=== PATIENT | female | born 1995 | race Caucasian/White ===

== ENCOUNTER 2017-03-17 23:22 | Emergency (ER) | payer BC, OTHER ==
[~2017-03-17] VITALS: Ht 152.4 cm; Wt 40.0 kg
[~2017-03-17 23:22] MED LIST: COLL30OI3 TOP
[2017-03-17 23:25] VITALS: BP 101/73; PULSE 84; RESP 16; TEMP 97.5; O2SAT 99
--- NOTE | 2017-03-18 01:10 | PD ---
HPI Chief Complaint: Edema Time Seen by Provider: 00:18 Travel History International Travel<30 days: No Contact w/Intl Traveler<30days: No History of Present Illness HPI The patient is a 21 year old female who presents to the [facility] emergency department with a history of lower extremity edema that began in the right lower extremity approximately 2-3 weeks ago. She reports that a few days after developing the edema she then developed a cellulitis. She reports that she has been under the care of a natural path for the last few months. She did see the natural pathic doctor and was treated with natural remedies. She reports that the cellulitis in the right leg resolved. Then approximately on Saturday to Saturday this past week she then developed swelling of the left lower extremity. Her doctor again thought that it may be related to lymphedema as the doctor thought that she was excreting toxins related to the treatment that he was recommending. 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 The patient became concerned when she developed redness of the leg that was worse than in the right leg. She reports that she now has increased redness since Saturday, increased swelling since Saturday, and weeping of yellow drainage.cReview of systems, the patient denies any known recent fevers, cough or congestion, shortness of breath, new or worsening abdominal pain, urinary symptoms, or neurologic symptoms. The patient denies having any vomiting or new diarrhea. She reports that she has a history of constipation that alternates with diarrhea been present for years. She reports that she last moved her bowels yesterday evening. She denies having any blood in her stool or black or tarry stools.LMP: At approximately 18-19 years of age. [facility] Past Medical History Narrative Medical The patient's past medical history is significant for reported intestinal permeability, history of parasitic infections in her intestines, malnutrition and weight loss. ?: Not LMP: "LONG TIME AGO" Past Surgical History Narrative Surgical The patient's past surgical history is reportedly none. Social History Alcohol Use: No Tobacco Use: No Substance Use: No Allergies-Medications (Allergen,Severity, Reaction): Coded Allergies: No Known Allergies (Unverified , 03/17/17) Reported Meds & Prescriptions Reported Meds & Active Scripts Active Bactrim DS (Sulfamethoxazole-Trimethoprim) 800-160 Mg Tab 1 Tab PO BID Keflex (Cephalexin) 500 Mg Capsule 500 Mg PO Q6H Reported Santyl (Collagenase) 15 Gm Oint 1 Applic TOP DAILY APPLY TO: Review of Systems Except as stated in HPI: all other systems reviewed are Neg General / Constitutional: No: Fever Eyes: No: Visual changes HENT: No: Headaches Cardiovascular: Positive: Edema, No: Chest Pain or Discomfort Respiratory: No: Shortness of Breath Gastrointestinal: No: Abdominal Pain Genitourinary: No: Urgency, Frequency, Dysuria Musculoskeletal: Positive: Edema, Pain Skin: Positive Rash Neurologic: No: Weakness, Focal Abnormalities, Change in Mentation, Slurred Speech, Sensory Disturbance Psychiatric: No: Depression Endocrine: No: Polydipsia Hematologic/Lymphatic: No: Easy Bruising Physical Exam Narrative General: The patient is a well-developed, cachectic appearing female in no acute distress. Head and Neck exam: Head is normocephalic atraumatic. Eyes: EOMI, pupils are equal round and reactive to light. Nose: Midline septum with pink mucous membranes Mouth: Dentition unremarkable. Moist mucus membranes. Posterior oropharynx is not erythematous. No tonsillar hypertrophy. Uvula midline. Airway patent. Neck: No palpable lymphadenopathy. No nuchal rigidity. No thyromegaly. Cardiovascular: Regular rate and rhythm without murmurs, gallops, or rubs. Lungs: Clear to auscultation bilaterally. No wheezes, rhonchi, or rales. Abdomen: Soft, distention, however no tenderness on palpation of all 4 quadrants of the abdomen. No guarding, rebound, or rigidity. Normal bowel sounds are audible. No tenderness on palpation of McBurney's point. Negative Guzman's sign. Extremities: No clubbing or cyanosis. The patient has 1+ pitting edema of the left lower extremity, trace to 1+ of the right lower extremity. Erythema that is generalized and noted just below the knee down to the ankle of the left leg. 2 + pulses in all 4 extremities. She has a clear yellow leakage from the left lower extremity around the ankle. The patient has abrasions to bilateral anterior knees which she reports is related to falling. The patient denies having calf tenderness on palpation. The patient has shotty bilateral inguinal lymphadenopathy. Back: No spinous process tenderness to palpation. No costovertebral angle tenderness to palpation. Neurologic Exam: Grossly nonfocal. She is awake and alert. She is oriented to person, place, time, and situation. Skin Exam: The patient's skin is warm. She is not diaphoretic. Data Data Last Documented VS Vital Signs Date Time Temp Pulse Resp B/P (MAP) Pulse Ox O2 Delivery O2 Flow Rate FiO2 03/17/17 23:25 97.5 84 16 101/73 (82) 99 Room Air Orders Orders Complete Blood Count With Diff (03/18/17:19) Comprehensive Metabolic Panel (03/18/17:19) B-Type Natriuretic Peptide (03/18/17:19) C-Reactive Protein (Crp) (03/18/17:19) Lipase (03/18/17:) Urinalysis - C+S If Indicated (03/18/17:19) Westergren Sedimentation Rate (03/18/17:19) Magnesium (Mg) (03/18/17:19) Iv Access Insert/Monitor (03/18/17:) Ecg Monitoring (03/18/17:19) Oximetry (03/18/17:19) Us Leg Venous Doppler Bilat (03/18/17 00:26) Thyroid Stimulating Hormone (03/18/17 00:44) Blood Culture (03/18/17 00:44) Lactic Acid Sepsis Protocol (03/18/17 00:44) Labs Laboratory Tests Test 03/18/17 02:15 White Blood Count 4.6 TH/MM3 Red Blood Count 3.57 MIL/MM3 Hemoglobin 12.1 GM/DL Hematocrit 36.1 % Mean Corpuscular Volume 101.0 FL Mean Corpuscular Hemoglobin 33.8 PG Mean Corpuscular Hemoglobin Concent 33.5 % Red Cell Distribution Width 12.2 % Platelet Count 228 TH/MM3 Mean Platelet Volume 7.3 FL Neutrophils (%) (Auto) 59.8 % Lymphocytes (%) (Auto) 31.2 % Monocytes (%) (Auto) 7.5 % Eosinophils (%) (Auto) 1.0 % Basophils (%) (Auto) 0.5 % Neutrophils # (Auto) 2.8 TH/MM3 Lymphocytes # (Auto) 1.4 TH/MM3 Monocytes # (Auto) 0.3 TH/MM3 Eosinophils # (Auto) 0.0 TH/MM3 Basophils # (Auto) 0.0 TH/MM3 CBC Comment DIFF FINAL Differential Comment Erythrocyte Sedimentation Rate 59 mm/hr Urine Color YELLOW Urine Turbidity CLEAR Urine pH 8.0 Urine Specific Rosalia 1.006 Urine Protein NEG mg/dL Urine Glucose (UA) NEG mg/dL Urine Ketones NEG mg/dL Urine Occult Blood NEG Urine Nitrite NEG Urine Bilirubin NEG Urine Urobilinogen LESS THAN 2.0 MG/DL Urine Leukocyte Esterase NEG Urine WBC 2 /hpf Microscopic Urinalysis Comment CULT NOT INDICATED Blood Urea Nitrogen 19 MG/DL Creatinine 0.39 MG/DL Random Glucose 65 MG/DL Total Protein 7.8 GM/DL Albumin 4.2 GM/DL Calcium Level 9.0 MG/DL Magnesium Level 2.5 MG/DL Alkaline Phosphatase 106 U/L Aspartate Amino Transf (AST/SGOT) 41 U/L Alanine Aminotransferase (ALT/SGPT) 72 U/L Total Bilirubin 0.3 MG/DL Sodium Level 137 MEQ/L Potassium Level 4.1 MEQ/L Chloride Level 99 MEQ/L Carbon Dioxide Level 35.1 MEQ/L Anion Gap 3 MEQ/L Estimat Glomerular Filtration Rate 204 ML/MIN Lactic Acid Level 1.1 mmol/L C-Reactive Protein 6.27 MG/DL B-Type Natriuretic Peptide 42 PG/ML Lipase 421 U/L Thyroid Stimulating Hormone 3rd Gen 1.670 uIU/ML MDM Medical Decision Making Medical Screen Exam Complete: Yes Emergency Medical Condition: Yes Medical Record Reviewed: Yes Differential Diagnosis DVT, versus hypoalbuminemia, versus hypothyroid disorder, versus cellulitis, versus lymphedema Narrative Course During the course of the patients emergency department visit, the patients history, examination, and differential diagnosis were reviewed with the patient. The patient had IV access obtained and blood work sent for analysis. The patient was placed on a quality assurance monitor with oximetry and blood pressure monitoring. An ultrasound of bilateral lower extremities was ordered. The patient's left leg examination is consistent with cellulitis. I explained that the patient would require admission for evaluation and treatment of cellulitis involving the left lower extremity. The patient reports that she will not be admitted. The patient refused IV fluids and IV antibiotic. The patient also refused oral antibiotic. The patients laboratory studies were reviewed and remarkable for a white count of 4.6, hemoglobin 12.1, platelets 228 with a normal differential, sedimentation rate is elevated at 59, CMP is remarkable for CO2 of 35.1, anion gap 3, BUN 19, creatinine 0.39, glucose 65 which will be repeated by Accu-Chek, AST 41, ALT 72, C-reactive protein 6.27, BNP is 42, lipase 421, TSH 1.67, lactic acid 1.1, urinalysis is within normal limits. The patient's blood sugar was noted to be 87. Radiology studies were reviewed and remarkable for an ultrasound that showed no evidence of DVT bilaterally. I Explained to the patient that she could have a bacterial infection in her blood related to a cellulitis of her leg. I also explained that the patient could have a life-threatening bacterial infection versus a limb threatening infection from cellulitis of the left lower extremity. In spite of this, the patient reports that she will not be admitted to the hospital. AMA: The risks of leaving against medical advice without further evaluation treatment were discussed with the patient. These risks include cardiac dysfunction, cardiac dysrhythmia, possible heart attack, possible stroke or . The patient indicated understanding of these risks and appeared to have the capacity to make this decision. Diagnosis Primary Impression: Cellulitis of left lower extremity Additional Impressions: Bilateral lower extremity edema Malnutrition Qualified Codes: E46 - Unspecified protein-calorie malnutrition Admitting Information Admitting Physician Requests: Admit Referrals: Primary Care Physician 1 day Patient Instructions: Cellulitis (ED), General Instructions, Leg Edema (ED) Med/Other Pt SpecificInfo: Prescription(s) given Scripts Sulfamethoxazole-Trimethoprim (Bactrim DS) 800-160 Mg Tab 1 TAB PO BID for Infection, #20 TAB 0 Refills Prov: Rossy Martinez MD 03/18/17 Cephalexin (Keflex) 500 Mg Capsule 500 MG PO Q6H for Infection, #40 CAP 0 Refills Prov: Rossy Martinez MD 03/18/17 Disposition: 07 AGAINST MEDICAL ADVICE Condition: Rossy Adkins MD Mar 18, 2017 01:10
--- NOTE | 2017-03-18 02:03 | RADRPT ---
EXAM DATE/TIME: 03/18/2017 01:19 [place] COMPARISON: No previous studies available for comparison. INDICATIONS : Bilateral leg swelling. MEDICAL HISTORY : None. SURGICAL HISTORY : None. ENCOUNTER: Initial ACUITY: 1 week PAIN SCORE: 7/10 LOCATION: Bilateral legs. TECHNIQUE: Venous ultrasound of the left and right leg was performed from the inguinal ligament to the proximal calf. Real-time, color Doppler and spectral tracing, compression and augmentation techniques were us ed. FINDINGS: RIGHT LEG: There is normal compressibility of the deep venous system from the inguinal region to the proximal ca lf. No echogenic clot is seen in the lumen of the common femoral, femoral, popliteal, and posterior tibial veins. There is a normal response of the venous system to proximal and distal augmentation an d respiration. LEFT LEG: There is normal compressibility of the deep venous system from the inguinal region to the proximal ca lf. No echogenic clot is seen in the lumen of the common femoral, femoral, popliteal, and posterior tibial veins. There is a normal response of the venous system to proximal and distal augmentation an d respiration. CONCLUSION: No venous thrombosis of either lower extremity. Natanael Patel MD on March 18, 2017 at 2:01 Board Certified Radiologist. This report was verified electronically.
[2017-03-18 02:36] LABS: BLOOD, URINE NEG (NEG); COMMENT (UR) CULT NOT INDICATED; CULTURE IF INDICATED CULT NOT INDICATED; GLUCOSE,URINE NEG (NEG); KETONE, URINE NEG (NEG); NITRITE,URINE NEG (NEG); URINE COLOR YELLOW (YELLW/STRAW)
[2017-03-18 02:38] LABS: AUTOMATED NEUTROPHIL # 2.8 TH/MM3 (1.8-7.7); BASOPHIL % 0.5 % (0.0-2.0); HEMATOCRIT 36.1 % (35.0-46.0); HEMO FLAGS DIFF FINAL; LYMPH % 31.2 % (9.0-44.0); LYMPHOCYTE # 1.4 TH/MM3 (1.0-4.8); MEAN CORPUSCULAR HEMOGLOBIN 33.8 PG (27.0-34.0); MEAN CORPUSCULAR HGB CONC 33.5 % (32.0-36.0); MONO % 7.5 % (0.0-8.0); NEUT % 59.8 % (16.0-70.0); PLATELET COUNT 228 TH/MM3 (150-450); RED BLOOD COUNT 3.57 MIL/MM3 (4.00-5.30); RED CELL DISTRIBUTION WIDTH 12.2 % (11.6-17.2); WHITE BLOOD COUNT 4.6 TH/MM3 (4.0-11.0)
[2017-03-18 02:51] LABS: ALT (GPT) 72 U/L (10-53); ANION GAP 3 MEQ/L (5-15); AST (GOT) 41 U/L (15-37); BICARBONATE 35.1 MEQ/L (21.0-32.0); BLOOD UREA NITROGEN 19 MG/DL (7-18); CHLORIDE 99 MEQ/L (98-107); GLOMERULAR FILTRATION RATE 204 ML/MIN (>89); MAGNESIUM 2.5 MG/DL (1.5-2.5); POTASSIUM 4.1 MEQ/L (3.5-5.1); SODIUM (NA) 137 MEQ/L (136-145)
[2017-03-18 02:54] LABS: ALKALINE PHOSPHATASE 106 U/L (45-117); TOTAL BILIRUBIN ADULT 0.3 MG/DL (0.2-1.0)
[2017-03-18] MEDS ORDERED: CEPH-460 PO (03:49)
[2017-03-18] MEDS ORDERED: BACT800T5 PO (03:49)
== END 2017-03-18 04:33 | disposition left against medical advice (07) ==
LOC: NEPE 23:22
DX: L03.116 Cellulitis of left lower limb (principal); R60.0 Localized edema; E46 Unspecified protein-calorie malnutrition; K59.00 Constipation, unspecified; R19.7 Diarrhea, unspecified; Z53.21 Procedure and treatment not carried out due to patient leaving prior to being seen by health care provider
CPT/HCPCS: 80053; 81001; 83605; 83690; 83735; 83880; 84443; 85025; 85652; 86140; 87040; 93970

== ENCOUNTER 2017-03-20 02:14 | Inpatient (IN) | payer BC ==
[~2017-03-20] VITALS: Ht 152.4 cm; Wt 40.0 kg
[~2017-03-20 02:14] MED LIST changes: +BACT800T5 PO; +CEPH-460 PO
[2017-03-20 02:18] VITALS: BP 101/67; PULSE 80; RESP 16; TEMP 98.4; O2SAT 100
[2017-03-20] MEDS ORDERED: PIPERACIL-TAZO 3.375 GM PREMIX 50 ML IV ONE (03:00)
--- NOTE | 2017-03-20 03:17 | PD ---
HPI Chief Complaint: Edema Time Seen by Provider: 02:39 Travel History International Travel<30 days: No Contact w/Intl Traveler<30days: No Traveled to known affect area: No History of Present Illness HPI The patient is a 21 year old female who presents to the [facility] emergency department with a history of being diagnosed with cellulitis of the right lower extremity associated with bilateral lower extremity lymphedema during her emergency department visit on March 17. The patient elected to leave AGAINST MEDICAL ADVICE at that time, as she did not want to be admitted to the hospital. The patient was provided a prescription for Bactrim and Keflex. She reports that she did start taking the medication on Saturday evening. She reports that over the last 24 hours the right leg redness and swelling has worsened. She denies having any worsening pain. She reports that she has had some blisters develop along the dorsum of the right foot. On review of systems, she denies having any fevers or chills, cough, congestion, neck pain, chest pain, shortness of breath, abdominal pain, vomiting, diarrhea, urinary symptoms, or neurologic symptoms. [facility] Past Medical History Narrative Medical The patient's past medical history is reportedly significant for intestinal permeability, history of parasitic infections in her intestines with associated malnutrition and weight loss. She is managed by a naturopathic doctor. Diminished Hearing: No Integumentary: Yes (cellulitis) Tetanus Vaccination: Unknown Influenza Vaccination: No ?: Not LMP: no menstral cycle for yrs Past Surgical History Narrative Surgical The patient's past surgical history is significant for tonsil and adenoidectomy Oral Surgery: Yes Tonsillectomy: Yes (T&A) Social History Alcohol Use: No Tobacco Use: No Substance Use: No Allergies-Medications (Allergen,Severity, Reaction): Coded Allergies: No Known Allergies (Unverified , 03/17/17) Reported Meds & Prescriptions Reported Meds & Active Scripts Active Bactrim DS (Sulfamethoxazole-Trimethoprim) 800-160 Mg Tab 1 Tab PO BID Keflex (Cephalexin) 500 Mg Capsule 500 Mg PO Q6H Review of Systems Except as stated in HPI: all other systems reviewed are Neg General / Constitutional: No: Fever Eyes: No: Visual changes HENT: No: Headaches Cardiovascular: Positive: Edema, No: Chest Pain or Discomfort Respiratory: No: Shortness of Breath Gastrointestinal: No: Nausea, Vomiting, Diarrhea, Abdominal Pain Genitourinary: No: Dysuria Musculoskeletal: Positive: Edema, No: Pain Skin: No Rash Neurologic: No: Weakness, Focal Abnormalities, Change in Mentation, Slurred Speech, Sensory Disturbance Psychiatric: No: Depression Endocrine: No: Polydipsia Hematologic/Lymphatic: No: Easy Bruising Physical Exam Narrative General: The patient is a well-developed well-nourished female in no acute distress. Head and Neck exam: Head is normocephalic atraumatic. Eyes: EOMI, pupils are equal round and reactive to light. Nose: Midline septum with pink mucous membranes Mouth: Dentition unremarkable. Moist mucus membranes. Posterior oropharynx is not erythematous. No tonsillar hypertrophy. Uvula midline. Airway patent. Neck: No palpable lymphadenopathy. No nuchal rigidity. No thyromegaly. Cardiovascular: Regular rate and rhythm without murmurs, gallops, or rubs. No pulse deficit to the extremities. Lungs: Clear to auscultation bilaterally. No wheezes, rhonchi, or rales. Abdomen: Abdomen is slightly distended, firm to palpation, however the patient denies any tenderness on palpation of all 4 quadrants of the abdomen. No guarding, rebound, or rigidity. Normal bowel sounds are audible. No tenderness on palpation of McBurney's point. Negative Guzman's sign. Extremities: No clubbing or cyanosis. The patient has 2+ pitting edema of the left lower extremity, 1+ on the right. The patient has erythema from just past the knee down to the foot. The patient has vesicle formation along the dorsum of the left foot. 2+ pulses in all 4 extremities. Back: No spinous process tenderness to palpation. No costovertebral angle tenderness to palpation. Neurologic Exam: Grossly nonfocal. Skin Exam: No other rashes noted. Skin is warm and dry. Data Data Last Documented VS Vital Signs Date Time Temp Pulse Resp B/P (MAP) Pulse Ox O2 Delivery O2 Flow Rate FiO2 03/20/17 03:00 20 03/20/17 02:18 98.4 80 101/67 (78) 100 Orders Orders Complete Blood Count With Diff (03/20/17 02:59) Comprehensive Metabolic Panel (03/20/17 02:59) Blood Culture (03/20/17 02:59) C-Reactive Protein (Crp) (03/20/17 02:59) Lipase (03/20/17 02:59) Magnesium (Mg) (03/20/17 02:59) Ed Urine Pregnancytest Poc (03/20/17 02:59) Lactic Acid Sepsis Protocol (03/20/17 02:59) Piperacil-Tazo 3.375 Gm Premix (Zosyn 3. (03/20/17 03:00) Admit Order (Ed Use Only) (03/20/17 04:53) Labs Laboratory Tests Test 03/20/17 03:15 White Blood Count 5.1 TH/MM3 Red Blood Count 3.23 MIL/MM3 Hemoglobin 11.2 GM/DL Hematocrit 32.2 % Mean Corpuscular Volume 99.7 FL Mean Corpuscular Hemoglobin 34.5 PG Mean Corpuscular Hemoglobin Concent 34.6 % Red Cell Distribution Width 11.9 % Platelet Count 249 TH/MM3 Mean Platelet Volume 7.0 FL Neutrophils (%) (Auto) 60.1 % Lymphocytes (%) (Auto) 27.6 % Monocytes (%) (Auto) 10.5 % Eosinophils (%) (Auto) 0.9 % Basophils (%) (Auto) 0.9 % Neutrophils # (Auto) 3.1 TH/MM3 Lymphocytes # (Auto) 1.4 TH/MM3 Monocytes # (Auto) 0.5 TH/MM3 Eosinophils # (Auto) 0.0 TH/MM3 Basophils # (Auto) 0.0 TH/MM3 CBC Comment DIFF FINAL Differential Comment Blood Urea Nitrogen 26 MG/DL Creatinine 0.46 MG/DL Random Glucose 79 MG/DL Total Protein 7.3 GM/DL Albumin 3.9 GM/DL Calcium Level 9.1 MG/DL Magnesium Level 2.4 MG/DL Alkaline Phosphatase 104 U/L Aspartate Amino Transf (AST/SGOT) 32 U/L Alanine Aminotransferase (ALT/SGPT) 59 U/L Total Bilirubin 0.3 MG/DL Sodium Level 138 MEQ/L Potassium Level 4.1 MEQ/L Chloride Level 99 MEQ/L Carbon Dioxide Level 34.7 MEQ/L Anion Gap 4 MEQ/L Estimat Glomerular Filtration Rate 168 ML/MIN Lactic Acid Level 1.8 mmol/L C-Reactive Protein 3.35 MG/DL Lipase 363 U/L [facility] Medical Decision Making Medical Screen Exam Complete: Yes Emergency Medical Condition: Yes Medical Record Reviewed: Yes Differential Diagnosis Sepsis related to skin infection, versus worsening cellulitis Narrative Course During the course of the patients emergency department visit, the patients history, examination, and differential diagnosis were reviewed with the patient. The patient had IV access obtained and blood work sent for analysis. The patient was placed on a field advisor with oximetry and blood pressure monitoring. The patient's electronic medical record was reviewed. The patient had an ultrasound of her lower extremities done during her last emergency department visit that was negative for DVT. The patient was initially provided Zosyn 3.375 g IV. The patients laboratory studies were reviewed and remarkable for a white count of 5.1, hemoglobin 11.2, platelets 249 with 10.5 monocytes, CMP is remarkable for CO2 of 34.7, anion gap 4, BUN 26, creatinine 0.46, ALT 59, C-reactive protein is 3.35, lipase 363, lactic acid 1.8. The patient is agreeable with the plan to proceed with admission for extensive cellulitis involving the left lower extremity. Physician Communication Physician Communication The patient's case was discussed with the family practice resident who did agree to admit the patient for further evaluation and treatment at this time. Diagnosis Primary Impression: Cellulitis Qualified Codes: L03.116 - Cellulitis of left lower limb Admitting Information Admitting Physician Requests: Admit Rossy Martinez MD Mar 20, 2017 03:17
[2017-03-20 03:28] LABS: AUTOMATED NEUTROPHIL # 3.1 TH/MM3 (1.8-7.7); BASOPHIL % 0.9 % (0.0-2.0); EOSINOPHIL % 0.9 % (0.0-4.0); HEMATOCRIT 32.2 % (35.0-46.0); HEMO FLAGS DIFF FINAL; LYMPH % 27.6 % (9.0-44.0); LYMPHOCYTE # 1.4 TH/MM3 (1.0-4.8); MEAN CELL VOLUME 99.7 FL (80.0-100.0); MEAN CORPUSCULAR HEMOGLOBIN 34.5 PG (27.0-34.0); MEAN CORPUSCULAR HGB CONC 34.6 % (32.0-36.0); MONO % 10.5 % (0.0-8.0); NEUT % 60.1 % (16.0-70.0); PLATELET COUNT 249 TH/MM3 (150-450); RED BLOOD COUNT 3.23 MIL/MM3 (4.00-5.30); RED CELL DISTRIBUTION WIDTH 11.9 % (11.6-17.2); WHITE BLOOD COUNT 5.1 TH/MM3 (4.0-11.0)
[2017-03-20 04:01] LABS: ANION GAP 4 MEQ/L (5-15); AST (GOT) 32 U/L (15-37); BICARBONATE 34.7 MEQ/L (21.0-32.0); BLOOD UREA NITROGEN 26 MG/DL (7-18); CHLORIDE 99 MEQ/L (98-107); GLOMERULAR FILTRATION RATE 168 ML/MIN (>89); MAGNESIUM 2.4 MG/DL (1.5-2.5); POTASSIUM 4.1 MEQ/L (3.5-5.1); SODIUM (NA) 138 MEQ/L (136-145)
[2017-03-20 04:07] LABS: ALKALINE PHOSPHATASE 104 U/L (45-117); ALT (GPT) 59 U/L (10-53); TOTAL BILIRUBIN ADULT 0.3 MG/DL (0.2-1.0)
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
[2017-03-20] MEDS ORDERED: SODIUM CHLORIDE 0.9% FLUSH 10 ML FLUSH IV FLUSH PRN (06:00)
[2017-03-20] MEDS ORDERED: ACETAMINOPHEN 500 MG CPLT PO PRN (06:00)
[2017-03-20] MEDS ORDERED: Vancomycin Consult Pharmacy 1 EA OTHER SCH (06:00)
[2017-03-20 06:47] VITALS: BP 101/69; PULSE 81; RESP 20; O2SAT 98
[2017-03-20] MEDS ORDERED: VANCOMYCIN INJ 1,000 MG in SODIUM CHLOR 0.9% 250 ML INJ 250 ML IV ONE (07:00)
[2017-03-20] MEDS ORDERED: diphenhydrAMINE HCL 50 MG CAP PO ONE (08:15)
[2017-03-20 08:56] VITALS: BP 99/69; PULSE 80; RESP 18; TEMP 96.1; O2SAT 97
[2017-03-20] MEDS: SODIUM CHLORIDE 0.9% FLUSH 10 ML FLUSH IV FLUSH SCH ×2 (09:00→20:25)
[2017-03-20] MEDS: ENOXAPARIN SODIUM 40 MG/0.4 ML SYRINGE SQ SCH (09:00)
[2017-03-20] MEDS: SODIUM CHLOR 0.9% 1000 ML INJ 1,000 ML IV SCH ×2 (09:30→17:14)
[2017-03-20 12:31] VITALS: BP 103/82; PULSE 74; RESP 15; TEMP 95.3; O2SAT 100
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
[2017-03-20 15:30] VITALS: BP 92/69; PULSE 66; RESP 20; TEMP 93.8; O2SAT 100
[2017-03-20] MEDS: VANCOMYCIN INJ 750 MG in SODIUM CHLOR 0.9% 250 ML INJ 250 ML IV SCH (16:21)
[2017-03-20 21:20] VITALS: BP 107/75; PULSE 92; RESP 18; TEMP 98.2; O2SAT 99
[2017-03-21] VITALS: BP 151/84; PULSE 79; RESP 18; TEMP 97.9; O2SAT 99
[2017-03-21] MEDS: VANCOMYCIN INJ 750 MG in SODIUM CHLOR 0.9% 250 ML INJ 250 ML IV SCH ×4 (00:08→19:29)
[2017-03-21 04:00] VITALS: BP 104/73; PULSE 79; RESP 18; TEMP 98; O2SAT 99
[2017-03-21] MEDS: SODIUM CHLOR 0.9% 1000 ML INJ 1,000 ML IV SCH ×2 (06:20→18:15)
[2017-03-21] MEDS ORDERED: PHARMACY ORDERED LAB ONE (07:45)
[2017-03-21] MEDS: SODIUM CHLORIDE 0.9% FLUSH 10 ML FLUSH IV FLUSH SCH ×2 (08:27→21:00)
[2017-03-21] MEDS: ENOXAPARIN SODIUM 40 MG/0.4 ML SYRINGE SQ SCH (08:28)
[2017-03-21 08:45] VITALS: BP 112/80; PULSE 84; RESP 18; TEMP 98; O2SAT 100
[2017-03-21 08:48] LABS: HEMATOCRIT 31.4 % (35.0-46.0); MEAN CELL VOLUME 100.5 FL (80.0-100.0); MEAN CORPUSCULAR HEMOGLOBIN 34.7 PG (27.0-34.0); MEAN CORPUSCULAR HGB CONC 34.6 % (32.0-36.0); PLATELET COUNT 246 TH/MM3 (150-450); RED BLOOD COUNT 3.13 MIL/MM3 (4.00-5.30); RED CELL DISTRIBUTION WIDTH 12.1 % (11.6-17.2); REVIEW FLAG FINAL; WHITE BLOOD COUNT 3.7 TH/MM3 (4.0-11.0)
[2017-03-21 09:03] LABS: BLOOD, URINE NEG (NEG); COMMENT (UR) CULT NOT INDICATED; CULTURE IF INDICATED CULT NOT INDICATED; GLUCOSE,URINE NEG (NEG); KETONE, URINE NEG (NEG); NITRITE,URINE NEG (NEG); SQUAMOUS EPITHELIAL CELL URINE <1 /hpf (0-5); URINE COLOR LIGHT-YELLOW (YELLW/STRAW)
[2017-03-21 09:04] LABS: BICARBONATE 29.8 MEQ/L (21.0-32.0); POTASSIUM 4.4 MEQ/L (3.5-5.1)
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
[2017-03-21 12:20] VITALS: BP 114/80; PULSE 85; RESP 16; TEMP 97.8; O2SAT 99
--- NOTE | 2017-03-21 14:39 | HHI.PYPN ---
Subjective Remarks Patient was revisited today for psychiatric follow-up. Patient was found having an argument with housekeeping assistant about her eating habits. Her mother is inside the room. Patient is irritable and upset stating that she needs to live this hospital as well as possible. She says that she does not want to speak with a psychiatrist. She says that she has been through psychiatric experiences before "and they had not been helpful to me". Her mother present in the room interfere stating that her daughter did not need any mental health. She says that her daughter doesn't have mental condition," she is here for cellulitis". Patient reports good mood, she says that she is upset to be here and be reinquire multiple times about her eating habits. Patient says that she has the right to eat whatever she wants. She says that she has been gaining weight "with my current diet based in protein powder". She denies suicidal and homicidal ideation, she denies visual and auditory hallucinations. I spent some time trying to educate the patient about the importance in engaging in a psychiatric treatment for anorexia, but the patient was reluctant to listen to me and the mother seems to be in agreement with her. Mental Status Examination Appearance: Other (very skinny, with pronounced lanugo, ) Consciousness: Alert Orientation: x4 Memory: Unremarkable Thought Associations: Circumstantial Language: Other (adequate) Fund of Knowledge: Average Hallucination Type: None Suicidal Ideation: No Previous Suicide Attempts: No Homicidal Ideation: No Previous Homicide Attempts: No Insight: Poor Judgment: Poor Affect: Irritable Mood: Angry, Irritable Results Labs Test 03/21/17 07:43 03/21/17 08:24 03/21/17 12:22 White Blood Count 3.7 TH/MM3 Red Blood Count 3.13 MIL/MM3 Hemoglobin 10.9 GM/DL Hematocrit 31.4 % Mean Corpuscular Volume 100.5 FL Mean Corpuscular Hemoglobin 34.7 PG Mean Corpuscular Hemoglobin Concent 34.6 % Red Cell Distribution Width 12.1 % Platelet Count 246 TH/MM3 Mean Platelet Volume 7.1 FL Blood Urea Nitrogen 19 MG/DL Creatinine 0.38 MG/DL Random Glucose 84 MG/DL Calcium Level 8.9 MG/DL Sodium Level 137 MEQ/L Potassium Level 4.4 MEQ/L Chloride Level 103 MEQ/L Carbon Dioxide Level 29.8 MEQ/L Anion Gap 4 MEQ/L Estimat Glomerular Filtration Rate 210 ML/MIN Vancomycin Level Trough 9.8 MCG/ML Urine Color LIGHT-YELLOW Urine Turbidity HAZY Urine pH 8.0 Urine Specific [place] 1.010 Urine Protein NEG mg/dL Urine Glucose (UA) NEG mg/dL Urine Ketones NEG mg/dL Urine Occult Blood NEG Urine Nitrite NEG Urine Bilirubin NEG Urine Urobilinogen LESS THAN 2.0 MG/DL Urine Leukocyte Esterase NEG Urine Squamous Epithelial Cells <1 /hpf Urine Amorphous Sediment RARE Microscopic Urinalysis Comment CULT NOT INDICATED Date/Time Source Procedure Growth Status 03/20/17 03:15 Blood Peripheral Aerobic Blood Culture - Preliminary NO GROWTH IN 1 DAY Resulted 03/20/17 03:15 Blood Peripheral Anaerobic Blood Culture - Preliminary NO GROWTH IN 1 DAY Resulted 03/20/17 06:00 Wound Foot Gram Stain - Final Resulted 03/20/17 06:00 Wound Culture - Preliminary Group D Enterococcus Resulted Vitals/IOs Vital Signs Date Time Temp Pulse Resp B/P (MAP) Pulse Ox O2 Delivery O2 Flow Rate FiO2 03/21/17 12:20 97.8 85 16 114/80 (91) 99 03/20/17 06:47 Room Air Intake and Output 03/21/17 03/21/17 03/22/17 08:00 16:00 00:00 Intake Total 250 ml Balance 250 ml Assessment & Plan Problem List: (1) Eating disorder, unspecified ICD Codes: F50.9 - Eating disorder, unspecified Assessment & Plan: Patient continues to be insightless about eating disorder. No interested in treatment and psychiatric assessment. Family doesn't seem to be very cooperative and interested in psychiatric help. I spent a lot of time educating the patient about the dangerousness of her eating behaviors and habits the importance of engaging in psychiatric treatment, she declines. I offer a prescription of Prozac 20 mg, but patient refuses. Assessment & Plan Estimated LOS: days Justification for Cont. Inpt. She does not meet criteria for involuntary psychiatric admission at this moment. Kannan Higginbotham MD Mar 21, 2017 14:39
[2017-03-21 16:35] VITALS: BP 106/77; PULSE 74; RESP 16; TEMP 97.6; O2SAT 100
[2017-03-21 20:00] VITALS: BP 121/74; PULSE 97; RESP 20; TEMP 97.8; O2SAT 100
[2017-03-22] VITALS: BP 119/90; PULSE 91; RESP 20; TEMP 98; O2SAT 100
[2017-03-22 04:00] VITALS: BP 122/76; PULSE 92; RESP 18; TEMP 98.5; O2SAT 96
[2017-03-22] MEDS: VANCOMYCIN INJ 750 MG in SODIUM CHLOR 0.9% 250 ML INJ 250 ML IV SCH ×3 (04:44→21:42)
[2017-03-22] MEDS: SODIUM CHLOR 0.9% 1000 ML INJ 1,000 ML IV SCH ×2 (06:10→18:05)
[2017-03-22 08:06] LABS: HEMATOCRIT 32.3 % (35.0-46.0); MEAN CELL VOLUME 100.8 FL (80.0-100.0); MEAN CORPUSCULAR HEMOGLOBIN 34.1 PG (27.0-34.0); MEAN CORPUSCULAR HGB CONC 33.8 % (32.0-36.0); PLATELET COUNT 259 TH/MM3 (150-450); RED CELL DISTRIBUTION WIDTH 12.3 % (11.6-17.2); REVIEW FLAG FINAL; WHITE BLOOD COUNT 4.3 TH/MM3 (4.0-11.0)
[2017-03-22 08:31] LABS: BICARBONATE 29.8 MEQ/L (21.0-32.0)
[2017-03-22] MEDS: ENOXAPARIN SODIUM 40 MG/0.4 ML SYRINGE SQ SCH (09:00)
[2017-03-22] MEDS: SODIUM CHLORIDE 0.9% FLUSH 10 ML FLUSH IV FLUSH SCH ×2 (09:00→21:00)
[2017-03-22 09:01] VITALS: BP 111/73; PULSE 80; RESP 18; TEMP 97.6; O2SAT 100
[2017-03-22 11:03] LABS: FECES PHOSPHORUS ND (()); OSMOTIC GAP ND (())
[2017-03-22 12:30] VITALS: BP 119/80; PULSE 78; RESP 17; TEMP 97.8; O2SAT 100
--- NOTE | 2017-03-22 15:21 | HHI.FPPN ---
Subjective Remarks 21 year old female here with cellulitis of the left lower extremity. Her history of complicated by anorexia nervosa, restrictive type. She has a history of frequent infections likely due to immunosuppression caused by her chronic energy restriction and protein malnutrition. This morning her cellulitis is somewhat better, but still significant. The margins of her cellulitis has diminished somewhat, but her leg remains significantly erythematous and swollen with some clear drainage. This morning she is asking to be discharge and she remains a high AMA risk. Encouraged patient to stay as her leg remains significantly infected and she would benefit from continued IV antibiotics and monitoring. Unfortunately she has been resistant to talking to the psychiatrist and accepting treatment. She does not currently meet criteria for involuntary psychiatric admission. She is not amenable to medication treatment. Her insight about her eating disorder remains very poor. She does not accept that she has an eating disorder and is convinced she has parasites and malabsorption. Looking back at her history her BMI was 14.5 about 2 years ago, and is now up to 17.2, but it is not clear what amount of this is from edema. (Jose Price MD R3) Objective Vitals Vital Signs Date Time Temp Pulse Resp B/P (MAP) Pulse Ox O2 Delivery O2 Flow Rate FiO2 03/22/17 12:30 97.8 78 17 119/80 (93) 100 03/22/17 09:01 97.6 80 18 111/73 (86) 100 03/22/17 04:00 98.5 92 18 122/76 (91) 96 03/22/17 00:00 98.0 91 20 119/90 (100) 100 03/21/17 20:00 97.8 97 20 121/74 (90) 100 03/21/17 16:35 97.6 74 16 106/77 (87) 100 I/O 03/21/17 03/21/17 03/21/17 03/22/17 03/22/17 03/22/17 07:00 15:00 23:00 07:00 15:00 23:00 Intake Total 250 ml 730 ml 255 ml Balance 250 ml 730 ml 255 ml Intake Oral 480 ml IV Total 250 ml 250 ml 255 ml # Voids 2 7 # Bowel Movements 2 (Jose Price MD R3) Result Diagram: 03/22/1771103/22/17 0712 Objective Remarks Physical Exam GENERAL: Very thin, cachectic, BMI 17.2 but with significant lower extremity edema, also with abdominal edema, appearing like Kwashiorkor. SKIN: Significant erythema between her left ankle and knee, slightly better than before as judged by surgical pen markings. Not warm to the touch as before. Vesicular lesions on dorsum of left foot. Right leg also erythematous and both legs with significant edema. HEAD: Normocephalic. CARDIOVASCULAR: Regular rate and rhythm without murmurs, gallops, or rubs. RESPIRATORY: Clear to auscultation. GASTROINTESTINAL: Edematous abdomen NEUROLOGICAL: Awake and alert Psych: Obsessive about eating regimen, bags in room full of supplements, small measuring cups, shows up giovanna on her phone that tracks minute details of her diet. Poor insight into having an eating disorder, not willing to obtain help at this time for an eating disorder. Wants to leave the hospital. (Jose Price MD R3) A/P Assessment and Plan 21-year-old female with a history of frequent skin infections who presented to the emergency department with lower extremity cellulitis. She has anorexia nervosa with protein malnutrition likely making her more susceptible to infections. She has significant lower extremity edema likely from protein malnutrition versus effects of refeeding. Discharge Planning Pending significant improvement in cellulitis, tolerating oral antibiotics. Will continue encouragement of seeking treatment for eating disorder, she does not currently meet criteria for involuntary admission. (Jose Price MD R3) Attending Attestation Patient seen and examined. Case reviewed and discussed with the resident team. Agree with plan of care as discussed with me and documented in the resident note. she very much wants to go home. I broached the topic of anxiety, OCD type focus on eating and exercising and she stated she had been "obsessed" in the past but was improving now. She denies that she excessively focuses on her eating though she admitted to weighting and writing down every bite. (Yulissa Ruiz MD) Problem List: (1) Cellulitis ICD Codes: L03.90 - Cellulitis, unspecified Status: Acute Plan: -Vancomycin IV with pharmacy consult - Wound and blood cultures negative to date -Tylenol as needed for pain and/or fever (2) Eating disorder ICD Codes: F50.9 - Eating disorder, unspecified Plan: Likely anorexia nervosa, restrictive type. Obsessive about eating patterns, tracks minute details of her diet regimen. Poor insight into having an eating disorder. Not willing to get help for an eating disorder at this time. Psychiatry consulted, she is resistant to speaking with psychiatry. She is not amenable to an SSRI. She is not convinced she has an eating disorder and believes she has parasites and a malabsorption disorder. Significant edema likely from protein malnutrition versus effects of re-feeding. - Appreciate recommendations from psychiatry - Continue in-hospital counseling and encouragement - Maintain positive, open relationship with patient - B12/folate normal, follow thiamine level - Phosphorus/mg/potassium normal, monitor for refeeding syndrome - Stool studies pending (3) Fracture of head of right femur ICD Codes: S72.051A - Unspecified fracture of head of right femur, initial encounter for closed fracture Status: Chronic Plan: Possibility of osteopenia/porosis secondary to poor nutrition, vitamin D deficiency - Could consider bone density testing, broached the subject today but she seems resistant. (4) No contraindication to deep vein thrombosis (DVT) prophylaxis ICD Codes: Z78.9 - Other specified health status Plan: - Refusing Lovenox - She is very mobile in the room and in the halls (5) Nutrition, metabolism, and development symptoms ICD Codes: R63.8 - Other symptoms and signs concerning food and fluid intake Plan: Fluids: PO fluids, refused maintenance fluids Electrolytes: Monitor phosphorus, magnesium, potassium for refeeding syndrome Nutrition: vegan diet was ordered with extra salad as she only wants raw foods and refuses any butter or salt or oil on her vegetables (Jose Price MD R3) Problem Qualifiers (1) Cellulitis: Qualified Codes: L03.116 - Cellulitis of left lower limb Jose Price MD R3 Mar 22, 2017 15:21 Yulissa Ruiz MD Mar 23, 2017 11:00
[2017-03-22 17:13] VITALS: BP 111/82; PULSE 70; RESP 16; TEMP 97.5; O2SAT 99
[2017-03-22 20:00] VITALS: BP 122/81; PULSE 98; RESP 19; TEMP 98.1; O2SAT 100
[2017-03-23] VITALS: BP 119/74; PULSE 91; RESP 20; TEMP 98.8; O2SAT 98
[2017-03-23 04:00] VITALS: BP 110/76; PULSE 79; RESP 20; TEMP 97.5; O2SAT 100
[2017-03-23] MEDS: VANCOMYCIN INJ 750 MG in SODIUM CHLOR 0.9% 250 ML INJ 250 ML IV SCH (04:00)
[2017-03-23] MEDS: SODIUM CHLOR 0.9% 1000 ML INJ 1,000 ML IV SCH (05:26)
[2017-03-23 06:53] LABS: HEMATOCRIT 32.1 % (35.0-46.0); MEAN CELL VOLUME 101.6 FL (80.0-100.0); MEAN CORPUSCULAR HEMOGLOBIN 34.1 PG (27.0-34.0); MEAN CORPUSCULAR HGB CONC 33.6 % (32.0-36.0); PLATELET COUNT 245 TH/MM3 (150-450); RED BLOOD COUNT 3.16 MIL/MM3 (4.00-5.30); RED CELL DISTRIBUTION WIDTH 12.4 % (11.6-17.2); REVIEW FLAG FINAL; WHITE BLOOD COUNT 3.9 TH/MM3 (4.0-11.0)
[2017-03-23 06:59] LABS: BICARBONATE 29.3 MEQ/L (21.0-32.0); MAGNESIUM 2.4 MG/DL (1.5-2.5); POTASSIUM 4.2 MEQ/L (3.5-5.1)
[2017-03-23 08:00] VITALS: BP 106/70; PULSE 72; RESP 18; TEMP 98; O2SAT 100
--- NOTE | 2017-03-23 08:59 | HHI.DCPOC ---
Discharge Care Plan Diagnosis: (1) Cellulitis (2) Eating disorder, unspecified Goals to Promote Your Health * To prevent worsening of your condition and complications * To maintain your health at the optimal level Directions to Meet Your Goals Take your medications as prescribed Follow your dietary instruction Follow activity as directed Keep your appointments as scheduled Take your immunizations and boosters as scheduled If your symptoms worsen call your PCP, if no PCP go to Urgent Care Center or Emergency Room Smoking is Dangerous to Your Health. Avoid second hand smoke Call the 24-hour hour crisis hotline for domestic abuse at José Luis Bagley MD, R3 Mar 23, 2017 08:59
[2017-03-23] MEDS: ENOXAPARIN SODIUM 40 MG/0.4 ML SYRINGE SQ SCH (09:00)
--- NOTE | 2017-03-23 09:09 | HHI.FPPN ---
Subjective Remarks Patient interviewed with mother at bedside. The patient would like to go home today. She denies fever, chills. She thinks her cellulitis is vastly improved. She adamantly agrees she will take antibiotics by mouth as recommended. She agrees to return if her cellulitis is worsening. She agrees to follow-up in one week with a physician to make sure her cellulitis is improved. She denies nausea, vomiting, abdominal pain, headache, vision changes. (José Luis Bagley MD, R3) Objective Vitals Vital Signs Date Time Temp Pulse Resp B/P (MAP) Pulse Ox O2 Delivery O2 Flow Rate FiO2 03/23/17 04:00 97.5 79 20 110/76 (87) 100 03/23/17 00:00 98.8 91 20 119/74 (89) 98 03/22/17 20:00 98.1 98 19 122/81 (95) 100 03/22/17 17:13 97.5 70 16 111/82 (92) 99 03/22/17 12:30 97.8 78 17 119/80 (93) 100 I/O 03/22/17 03/22/17 03/22/17 03/23/17 03/23/17 03/23/17 06:59 14:59 22:59 06:59 14:59 22:59 Intake Total 255 ml 249 ml 720 ml 250 ml Balance 255 ml 249 ml 720 ml 250 ml Intake Oral 720 ml IV Total 255 ml 249 ml 250 ml # Voids 2 2 (José Luis Bagley MD, R3) Result Diagram: 03/23/17 0545 03/23/17 0545 Objective Remarks Physical Exam GENERAL: Very thin, cachectic, BMI 17.2 but with significant lower extremity edema, also with abdominal edema, appearing like Kwashiorkor. SKIN: Improved left lower leg cellulitis. Not warm to the touch as before. Vesicular lesions on dorsum of left foot. both legs with significant pitting edema (left more than right). HEAD: Normocephalic. CARDIOVASCULAR: Regular rate and rhythm without murmurs, gallops, or rubs. RESPIRATORY: Clear to auscultation. GASTROINTESTINAL: Edematous abdomen NEUROLOGICAL: Awake and alert Psych: Obsessive about eating regimen, bags in room full of supplements, small measuring cups, shows up giovanna on her phone that tracks minute details of her diet. Poor insight into having an eating disorder, not willing to obtain help at this time for an eating disorder. Wants to leave the hospital. (José Luis Bagley MD, R3) A/P Assessment and Plan 21-year-old female with a history of frequent skin infections who presented to the emergency department with lower extremity cellulitis. She has anorexia nervosa with protein malnutrition likely making her more susceptible to infections. She has significant lower extremity edema likely from protein malnutrition versus effects of refeeding. Discharge Planning Today. Patient and mother agreed to take antibiotics as prescribed. Both agree to return if leg is worsening. He was given specific instructions if she gets fevers, increased swelling, increased erythema, pain, to return. (José Luis Bagley MD, R3) Attending Attestation Patient seen and examined. Case reviewed and discussed with the resident team. Agree with plan of care as discussed with me and documented in the resident note. continued to emphasize eating protein and eating fats as well. she is improved as far as her mother is concerned with actually going out to dinner with her parents twice in the past month which she had not done in probably 4 years. She does report eating more protein over the past month as well. Her electrolytes and albumin are satisfactory. Her edema of her legs is very concerning. No DVT. However, this could be from a Kwashiorkor type protein malnutrition. If her edema does not improve a CT or some study of her pelvic lymph nodes could be warranted. She has been reluctant to see any specialists in the past including heme onc or Psychiatry. She has responded to an approach of emphasizing health and prevention of infection. I continued to emphasize that edema is a set up for infection. We also discussed evaluation of her bone density as an outpt. She does agree to follow up of her cellulitis and to return if it worsens. Advised wrapping her legs as tolerated to decrease the fluid as well. Discussed fats as essential for hormonal production. Confrontation has not worked for her as she has shut off and a more subtle approach encouraging tiny steps and changes will hopefully help. Advised her also that help was available for her eating and exercising "obsession" and anxiety. (Yulissa Ruiz MD) Problem List: (1) Cellulitis ICD Codes: L03.90 - Cellulitis, unspecified Status: Acute Plan: Continue Keflex 500 mg every 6 hours 7 days and Bactrim DS twice a day 7 days. Follow-up with physician in one week for improvement of symptoms. Given specific instructions to return if conditions are worsening. Patient and mother both agree with plan and state they will follow these recommendations. (2) Eating disorder ICD Codes: F50.9 - Eating disorder, unspecified Plan: Likely anorexia nervosa, restrictive type. Obsessive about eating patterns, tracks minute details of her diet regimen. Poor insight into having an eating disorder. Not willing to get help for an eating disorder at this time. Psychiatry consulted, she is resistant to speaking with psychiatry. She is not amenable to an SSRI. She is not convinced she has an eating disorder and believes she has parasites and a malabsorption disorder. Significant edema likely from protein malnutrition versus effects of re-feeding. - Appreciate recommendations from psychiatry - Maintain positive, open relationship with patient - Patient is not amenable to any treatment at this time despite counseling the risks with continued behavior including possibly . (3) Fracture of head of right femur ICD Codes: S72.051A - Unspecified fracture of head of right femur, initial encounter for closed fracture Status: Chronic Plan: Possibility of osteopenia/porosis secondary to poor nutrition, vitamin D deficiency - Could consider bone density testing, however patient is resistant (4) No contraindication to deep vein thrombosis (DVT) prophylaxis ICD Codes: Z78.9 - Other specified health status Plan: - Refusing Lovenox - She is very mobile in the room and in the halls (5) Nutrition, metabolism, and development symptoms ICD Codes: R63.8 - Other symptoms and signs concerning food and fluid intake Plan: Fluids: PO fluids, refused maintenance fluids Electrolytes: Monitor phosphorus, magnesium, potassium for refeeding syndrome Nutrition: vegan diet was ordered with extra salad as she only wants raw foods and refuses any butter or salt or oil on her vegetables (José Luis Bagley MD, R3) Problem Qualifiers (1) Cellulitis: Qualified Codes: L03.116 - Cellulitis of left lower limb José Luis Bagley MD, R3 Mar 23, 2017 09:09 Yulissa Ruiz MD Mar 23, 2017 11:11
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
== END 2017-03-23 10:56 | disposition home or self-care (01) | DRG 603 ==
LOC: NEPE 02:14 → NEDA 04:58 → NEPGCP 08:45 → N05B 03-21 20:15
PROVIDERS: ADMIT Family Medicine; ATTEND Family Medicine
DX: L03.116 Cellulitis of left lower limb (principal); R64 Cachexia; E46 Unspecified protein-calorie malnutrition; Z68.1 Body mass index [BMI] 19.9 or less, adult; F50.9 Eating disorder, unspecified; R60.0 Localized edema; K59.00 Constipation, unspecified; R19.7 Diarrhea, unspecified
CPT/HCPCS: 76937; 80048; 80053; 80202; 81001; 82438; 82607; 82746; 83605; 83690; 83735; 83880; 84100; 84302; 84376; 84425; 84443; 84703; 84999; 85025; 85027; 85652; 86140; 86403; 87040; 87070; 87077; 87186; 87205; 93970; 96365; 96366; J2543; J3370; J7050